=== PATIENT | male | born 1940 | race Caucasian/White ===

== ENCOUNTER → 2024-07-27 06:27 | Day surgery (SDC) | payer MEDICARE, SELFPAY ==
[2024-07-27 07:56] LABS: Glucose - Point of Care 114 mg/dl (70-99)
== END ==
LOC: GI 06:27
PROVIDERS: ATTENDING PHYSICIAN Internal Medicine Gastroenterology
DX: K31.89 Other diseases of stomach and duodenum (principal); K25.9 Gastric ulcer, unspecified as acute or chronic, without hemorrhage or perforation; R13.10 Dysphagia, unspecified; K22.89 Other specified disease of esophagus; K29.80 Duodenitis without bleeding
CPT/HCPCS: 43239; 88305; 82962; 87220; 88342

== ENCOUNTER → 2024-09-14 11:56 | Outpatient (REF) | payer MEDICARE, SELFPAY | LOC: HWRAD 11:56 | PROVIDERS: ATTENDING PHYSICIAN Nurse Practitioner Primary Care; REFERRING PHYSICIAN Specialist | DX: M25.511 Pain in right shoulder (principal); M25.811 Other specified joint disorders, right shoulder | CPT/HCPCS: 73030 ==

== ENCOUNTER → 2024-10-03 13:45 | Outpatient (REF) | payer MEDICARE, SELFPAY | LOC: HWRAD 13:45 | PROVIDERS: ATTENDING PHYSICIAN Specialist; FAMILY PHYSICIAN Nurse Practitioner Primary Care | DX: M19.011 Primary osteoarthritis, right shoulder (principal) | CPT/HCPCS: 73200 ==

== ENCOUNTER → 2024-10-09 13:17 | Outpatient (REF) | payer MEDICARE, SELFPAY | LOC: HWCARD 13:17 | PROVIDERS: ATTENDING PHYSICIAN Specialist; FAMILY PHYSICIAN Nurse Practitioner Primary Care | DX: Z01.818 Encounter for other preprocedural examination (principal) | CPT/HCPCS: 93005 ==

== ENCOUNTER 2024-10-26 06:18 | Day surgery (SDC) | payer MEDICARE, SELFPAY ==
[2024-10-26 09:07] LABS: Glucose - Point of Care 95 mg/dl (70-99)
== END 2024-10-26 10:52 | disposition home or self-care (01) ==
LOC: GI 06:18
PROVIDERS: ATTENDING PHYSICIAN Internal Medicine Gastroenterology
DX: K27.9 Peptic ulcer, site unspecified, unspecified as acute or chronic, without hemorrhage or perforation (principal)
CPT/HCPCS: 43235; 82962

== ENCOUNTER 2024-11-30 06:30 | Day surgery (SDC) | payer MEDICARE, SELFPAY ==
[2024-11-30 08:01] LABS: Glucose - Point of Care 90 mg/dl (70-99)
== END 2024-11-30 09:27 | disposition home or self-care (01) ==
LOC: GI 06:30
PROVIDERS: ATTENDING PHYSICIAN Internal Medicine Gastroenterology
DX: R12 Heartburn (principal); K31.89 Other diseases of stomach and duodenum; K27.9 Peptic ulcer, site unspecified, unspecified as acute or chronic, without hemorrhage or perforation
CPT/HCPCS: 43239; 88305; 82962; 88342

== ENCOUNTER 2025-04-28 17:53 | Inpatient (IN) | payer MEDICARE, SELFPAY ==
[2025-04-28] VITALS (12 sets, daily range): BP systolic 101–127; BP diastolic 60–78; PULSE 89; BMI 28.7
--- NOTE | 2025-04-28 12:39 | EDRN ---
Pt in BR attempting urine spec.
--- NOTE | 2025-04-28 12:41 | EDRN ---
Ailyn LEDESMA in room w/ pt.
--- NOTE | 2025-04-28 12:48 | ED.GENMED ---
History of Present Illness
General
Chief Complaint: Male Genito-Urinary Symptoms
Source: patient and spouse
Exam Limitations: none
Time Seen by Provider: 04/28/25 12:34
History of Present Illness
History of Present Illness:
84yoM with a history of hypertension, hyperlipidemia, type 2 diabetes, CKD, WINDY on CPAP, and BPH presenting with his for evaluation of dysuria. Symptoms began 2 days ago with burning with urination, foul smelling urine, and urinary frequency.
He was having difficulty sleeping because he had to get up so much to urinate. He is only urinating in small amounts at a time. He called his urologist yesterday regarding his symptoms and he was advised to start taking AZO and get an outpatient
urinalysis done. states he has been very fatigued over the last 24 hours and has been sleeping a lot. She noticed that the urine appeared to be discolored today. called his urologist back and they were advised to go to the ED for
evaluation. He had an episode of vomiting in the waiting room. Patient has a Dexcom and his blood sugars have been well controlled. Glucose is 128 during initial exam. He denies any fevers, chills, abdominal pain, testicular pain, flank pain.
Phy Exam
General Physical Exam
General Presentation: well appearing and no apparent distress
General Skin: warm and dry
General Habitus: normal
General Mental: alert
ENT Exam
ENT Exam: normocephalic
Cardiovascular Exam
Cardiovascular Exam: regular rate/rhythm
Pulmonary Exam
Pulmonary Exam: lungs clear, no respiratory distress, no rales, no crackles, no rhonchi and no wheezing
Gastrointestinal Exam
Gastrointestinal Exam: non tender, soft, non distended and no cva tenderness
Neurological Exam
Neurological Exam: alert
[place] Coma Scale
Eye Opening: Spontaneous
Verbal Response: Oriented
Motor Response: Obeys Commands
GCS Total Score: 15
Skin Exam
Skin Exam: normal color and warm/dry
Psychiatric Exam
Psychiatric Exam: normal mood/affect
Course
Orders/Labs/Results
Orders:
Orders
04/28/25 12:44
Urinalysis Reflex To Culture Urgent
Date Specimen was Collected: 04/28/25
Time Specimen was Collected: 12:42
Urine Microscopic Reflex Cult Urgent
Urine Culture Urgent
JARRETT Source: U
Specimen Description:
Date Specimen was Collected: 04/28/25
Time Specimen was Collected: 12:42
04/28/25 12:48
Bladder Scan- Treatment ONCE
04/28/25 13:06
Complete Blood Count/With Diff Urgent
Comprehensive Metabolic Panel Urgent
04/28/25 14:31
CT Abd/pel Without Iv Or Oral Urgent
Comment:
Reason For Exam: urinary symptoms, SIRIA
0.9% Sodium Chloride 500 ml [Nss] 500 ml IV BOLUS
CefTRIAXone [Rocephin] 2,000 mg IV NOW STA
04/28/25 16:06
Lactic Acid Urgent
Blood Culture Q30M
JARRETT Source: Blood/Venous
Specimen Description:
04/28/25 16:24
Blood Culture Q30M
JARRETT Source: Blood/Venous
Specimen Description:
04/28/25 17:02
Admit/Transfer Patient As Directed
Co-Sign Provider:
Level of Care: Inpatient admission
Assign to:: Telemetry
Physician / Group: Gemma
Diagnosis: Sepsis, UTI
Reason for Telemetry: Arrhythmia
Date to Stop Telemetry: 05/01/25
Time to Stop Telemetry: 11:00
Reason for Hospitalization: IVF, UTI
Expected length of stay greater than two midnights?: Yes
ELOS- Estimated Length of Stay in days: 3
I certify the patient meets the requirements for IP care: Yes
PRN Pain Medication Management As Directed
May give lesser potent ordered pain med per pt: Yes
preference::
Protocol:: Medication orders for pain may be administered in a
manner that supports deferring to patient preference
when the pt is:
- Requesting an ordered lesser potent pain medication.
Least to most potent pain medications are defined
as: acetaminophen < NSAID < tramadol < opioids
(morphine, oxycodone, hydromorphone).
- Requesting a lesser dose of the same medication IF
ORDERED.
- Requesting a less intrusive route of administration
if both routes are prescribed by the provider (PO <
IV).
04/28/25 17:04
Code Status As Directed
Resuscitation Status: Full Code
05/01/25 11:00
DC Protocol for Telemetry ONCE
Abnormal Lab Results
04/28/25 04/28/25 04/28/25
12:44 13:06 16:06
WBC 15.8 H 10^3/uL
(4.8-10.8)
RDW 14.9 H %
(11.5-14.5)
Plt Count 129 L 10^3/uL
(130-400)
Abs Immat Gran (auto) 0.1 H 10^3/uL
(0-0.05)
Absolute Neuts (auto) 14.1 H 10^3/uL
(1.4-6.5)
Absolute Lymphs (auto) 0.5 L 10^3/uL
(1.2-3.4)
Absolute Monos (auto) 1.1 H 10^3/uL
(0.1-0.6)
Neutrophils % 89.2 H %
(42.2-75.2)
Lymphocytes % 3.0 L %
(20.5-51.1)
Sodium 134 L mmol/L
(135-145)
BUN 37 H mg/dl
(9-20)
Creatinine 1.7 H mg/dL
(0.7-1.3)
Glucose 137 H mg/dl
(70-99)
Lactic Acid 2.2 H mmol/L
(0.7-2.0)
Total Bilirubin 1.9 H mg/dl
(0.2-1.3)
Total Protein 6.1 L g/dl
(6.3-8.2)
Ur Occult Blood Reflex 4+ A
(Negative)
Urine Nitrite (Reflex) Positive A
(Negative)
Urine Bilirubin 3+ A
(Negative)
Urine Urobilinogen 2+ A
(Neg - 1+)
Leukocyte Esterase Rfl 3+ A
(Negative)
Urine RBC >100 A /HPF
(0-2)
Urine WBC (Reflex) 50-60 A /HPF
(0-5)
Urine Bacteria (Reflex) Many A
(Negative)
Urine Albumin (Reflex) 4+ A
(Neg - Trace)
04/28/25 13:06
04/28/25 13:06
Vital Signs
Initial and Last Documented VS:
Initial Vital Signs
Temp Pulse Resp BP Pulse Ox
99.1 F 66 16 127/75 95
04/28/25 11:50 04/28/25 11:50 04/28/25 11:50 04/28/25 11:50 04/28/25 11:50
Last Documented Vital Signs
Temp Pulse Resp BP Pulse Ox
99.1 F 93 16 101/67 93
04/28/25 11:50 04/28/25 18:51 04/28/25 17:00 04/28/25 18:51 04/28/25 18:51
MDM/Problems Addressed
Differential Diagnosis Includes:
84yoM here with UTI symptoms and fatigue x 2 days. VSS. He is non-toxic appearing. No abdominal or CVA tenderness on exam. Differential diagnosis includes but is not limited to: UTI, pyelonephritis, urinary retention
Initial ED plan: Check CBC, CMP, UA, and bladder scan.
*Pulse Oximetry
SaO2: 95
Oxygen Mode of Delivery: Room air
Patient hypoxic: no (95%)
*Critical Care Note
Total Time (30-74mins, 75-104mins- exclusive of procedures): Not Applicable
Update Note
Update Note:
UA is nitrite positive with 50-60 WBC and many bacteria. White count is 15.8. Creatinine 1.7. was able to show me his recent lab work from [facility]. Last creatinine in February [address] abdomen added which does not show any ureterolithiasis
or hydronephrosis. Blood cultures and IV Rocephin ordered. Patient admitted for further management.
ED Attending Note
-
Portions of this chart may have been created with voice recognition software.� Occasional wrong word or��sound alike� substitutions may have occurred due to the inherent limitations of voice recognition software.
Discharge Plan
Departure
Patient Disposition: Admit
Date of Disposition: 04/28/25
Time of Disposition: 16:25
Presentation/result/management discussed w/ accepting MD/DO: Hospitalist
Discharge Problem:
Urinary tract infection, Acute kidney injury
Interventions
Interventions:
*Risk Screen - Suicide Last Done: 04/28/25 11:55
*General Assessment Last Done: 04/28/25 12:38
*Neglect/Abuse Screening Last Done: 04/28/25 11:55
*ED- Fall Risk Assessment Last Done: 04/28/25 12:38
*ED COVID-19 Vaccine History Last Done: 04/28/25 12:38
ED-Male Genitourinary Assessment Last Done: 04/28/25 12:42
[2025-04-28 12:53] LABS: Urine Character Cloudy (Clear)
[2025-04-28 13:05] LABS: Urine Red Blood Cell >100 /HPF (0-2); Urine White Cell 50-60 /HPF (0-5)
[2025-04-28 13:14] LABS: Hematocrit 41.6 % (39.0-52.0); Hemoglobin 13.8 g/dL (13.0-18.0); Mean Corp Hgb Conc. 33.2 g/dL (33.0-37.0); Mean Corpuscular Volume 88.5 fL (80.0-94.0); Nucleated Red Blood Cells % 0 % (-); Platelet Count 129 10^3/uL (130-400); Red Cell Dist. Width 14.9 % (11.5-14.5)
[2025-04-28 13:38] LABS: ALT (SGPT) 21 U/L (0-50); AST (SGOT) 48 U/L (17-59); Albumin 3.6 g/dl (3.5-5.0); Alkaline Phosphatase 97 U/L (38-126); Blood Urea Nitrogen 37 mg/dl (9-20); Calcium 8.7 mg/dl (8.4-10.2); Carbon Dioxide 23 mmol/L (22-30); Chloride 102 mmol/L (98-107); Estimated Creatinine Clearance 41 ml/min; Glucose 137 mg/dl (70-99); Potassium 4.2 mmol/L (3.5-5.1); Sodium 134 mmol/L (135-145); Total Protein 6.1 g/dl (6.3-8.2); eGFR 39.75
[2025-04-28] MEDS: ROCEPHIN 2000 MG IV (16:32)
[2025-04-28] MEDS: NSS 500 IV (16:32)
--- NOTE | 2025-04-28 16:36 | HPS.HSE ---
Family Physician
-
Family Physician: Cristy Moe
Chief Complaint
-
Dysuria
History of Present Illness
Patient is a 84 y/o male past medical history of DM, HTN, CKD, peripheral neuropathy and BPH who presents with dysuria and foul-smelling urine. Patient reports onset of symptoms 2 day ago. He notes yesterday he was very tired and spent most of the
day sleeping. He reports chills yesterday as well. He denies prior history of urinary tract infection, but notes he was started on Farxiga about 6-8 months ago.
Medical History
Past Medical History
Past Medical History: Reports Other
Additional Past Medical History:
Diabetes Mellitus, Type II
Essential Hypertension
Hyperlipidemia
CKD IIIA
Peripheral Neuropathy
BPH
GERD
Gout
WINDY
Past Surgical History: Reports Other
Additional Past Surgical History:
Right Shoulder Replacement
Social History
Tobacco: Non-smoker
Alcohol: Other (Very rare)
Personal:
Family History
Family History: Not pertinent
Allergies / Home Medications
Allergies reflects when Allergies were last updated in [facility] [employer] [facility].
Home Medications with original date entered in [employer]
Allergy/Medication List:
Allergies
Allergy/AdvReac Type Severity Reaction Status Date / Time
No Known Allergies Allergy Unverified 04/28/25 11:55
Home Medications
alfuzosin 10 mg tablet,extended release 24 hr 10 mg PO QPM 04/28/25
allopurinol 300 mg tablet 300 mg PO DAILY 04/28/25
atorvastatin 20 mg tablet 20 mg PO DAILY 04/28/25
cyanocobalamin (vitamin B-12) 1,000 mcg tablet 1,000 mcg PO DAILY 04/28/25
dapagliflozin propanediol 10 mg tablet (Farxiga) 10 mg PO DAILY 04/28/25
dulaglutide 4.5 mg/0.5 mL subcutaneous pen injector (Trulicity) 4.5 mg SC TORRES 04/28/25
ezetimibe 10 mg tablet 10 mg PO DAILY 04/28/25
gabapentin 100 mg capsule 100 mg PO TIDPRN PRN nerve pain 04/28/25
losartan 100 mg-hydrochlorothiazide 12.5 mg tablet 1 tab PO DAILY 04/28/25
mirabegron 25 mg tablet,extended release 24 hr (Myrbetriq) 25 mg PO DAILY 04/28/25
mupirocin 2 % topical ointment 1 applic topical DAILY 04/28/25
pantoprazole 40 mg tablet,delayed release 40 mg PO DAILY 04/28/25
phenazopyridine 95 mg tablet 190 mg PO TID 04/28/25
therapeutic multivitamin 1 tab PO DAILY 04/28/25
tramadol 50 mg tablet 50 mg PO Q8HPRN PRN nerve pain 04/28/25
zinc acetate 50 mg (zinc) capsule 50 mg PO DAILY 04/28/25
Review of Systems
-
History Source: Patient
A 12 point ROS was completed and negative except as noted: Yes
Constitutional: Reports Chills; Denies Fever
Respiratory: Denies Cough or Trouble Breathing
Cardiac: Denies Chest Pain or Palpitations
Abdomen/GI: Denies Abdominal Pain, Nausea, Vomiting, Diarrhea or Constipated
: Reports See HPI and Dysuria
Physical Exam
Vital Signs
Vital Signs
Temp Pulse Resp BP Pulse Ox
99.1 F 92 16 103/62 94
04/28/25 11:50 04/28/25 14:00 04/28/25 14:00 04/28/25 14:00 04/28/25 14:00
Physical Exam
General: Well Developed, Well Nourished and No Apparent Distress
HEENT: NormoCephalic, Anicteric, Moist mucous membranes and Atraumatic
Respiratory: Clear and Non Labored Respirations; No Wheezes, Rales or Rhonchi
Cardiac: S1/S2 and Regular Rhythm; No Murmur
GI: Soft, Non Tender and Other (Protuberant)
Rectal: Deferred by Provider
Musculoskeletal: No Clubbing, No Cyanosis and No Edema
Skin: Warm and Dry; No Rash
Neuro: Awake, Alert, Oriented and Nonfocal/grossly intact
Psych: Calm
Laboratory Results
-
04/28/25 13:06
04/28/25 13:06
Laboratory Results
Lactic Acid 2.2 mmol/L (0.7-2.0) H 04/28/25 16:06
Total Bilirubin 1.9 mg/dl (0.2-1.3) H 04/28/25 13:06
AST 48 U/L (17-59) 04/28/25 13:06
ALT 21 U/L (0-50) 04/28/25 13:06
Alkaline Phosphatase 97 U/L (38-126) 04/28/25 13:06
Data Reviewed
-
Lab Data: Labs Reviewed by me
Impression/Plan
-
Sepsis secondary to Urinary Tract Infection
-Continue Ceftriaxone
-Await urine and blood culture
-Plan to stop dapagliflozin as may have contributed to development of urinary tract infection
SIRIA on CKD IIIA
-Continue IVFs
-Hold losartan/HCTZ and dapagliflozin
-Recheck labs in AM
Diabetes Mellitus, Type II
-Patient reports no longer on insulin
-Hold dapagliflozin
-Monitor sugars and continue coverage insulin
Essential Hypertension
-Hold losartan and HCTZ due ot SIRIA
Hyperlipidemia
-continue atorvastatin and ezetimibe
BPH
-Monitor bladder scan
-Continue alfuzosin
GERD
-Continue Protonix
WINDY
-Continue CPAP
DVT proph: SCDs
Code Status: Full Code
--- NOTE | 2025-04-28 17:25 | W.PN.UPDATE ---
Update Note
Progress Note Update
This is an addendum to H&P written by Noemy Stone on 04/28/2025. �Patient seen and examined independently with PA.
84-year-old male past medical history of CKD, diabetes, hypertension, hyperlipidemia, neuropathy, BPH, GERD, gout, obstructive sleep apnea, presenting with dysuria for 2 days with fatigue and foul-smelling urine. �Chills.
Vital signs normal apart from borderline tachycardia.
Labs show leukocytosis. �Urinalysis shows 50-60 WBC, +2 leukocyte esterase, positive nitrates.
Lactic acid 2.2. �Creatinine 1.7. �CT abdomen pelvis shows severe BPH, urinary bladder wall thickening, renal cyst, moderate splenomegaly, mild hepatomegaly, chronic pancreatitis, diverticulosis, moderate fecal material in the proximal colon.
Patient with sepsis secondary to urinary tract infection.
Check blood cultures. �Urine culture. �IV fluids for SIRIA. �Ceftriaxone. �Hold losartan/hydrochlorothiazide and dapagliflozin.
Unclear etiology of splenomegaly. �Outpatient follow-up. �Not clinically constipated.
--- NOTE | 2025-04-28 17:50 | CM ---
CM reviewed chart and met with pt and bedside in ED. Lives with , 2 story home, [address]. first floor half BA, full flight of steps to second floor BR/full BA.
Independent in ADLs, personal care and ambulation. Has RW, per pt, Dr Starkey wants him to get a knee scooter as he has unhealed ulcers on his foot, he is looking in to this.
Also has CPAP, Dexcom, raised toilet seat and shower bench
They are considering selling their home and moving to [facility] but do not have any definite plans yet.
Confirms prescription coverage.
Hx [facility] and [facility] at [facility] for rehab
PCP: Cristy Moe
Pharmacy: [facility]
Anticipate discharge home, CM will continue to follow for any discharge planning needs.
[2025-04-28] MEDS: NSS 1000 IV (21:15)
[2025-04-28 21:31] LABS: Glucose - Point of Care 103 mg/dl (70-99)
[2025-04-28] MEDS: ULTRAM 50 MG PO (21:54)
[2025-04-29] MEDS: MELATONIN 5 MG PO ×2 (00:02→19:50)
[2025-04-29 05:56] LABS: Hematocrit 37.9 % (39.0-52.0); Hemoglobin 12.9 g/dL (13.0-18.0); Mean Corp Hgb Conc. 34.0 g/dL (33.0-37.0); Mean Corpuscular Volume 88.8 fL (80.0-94.0); Platelet Count 139 10^3/uL (130-400); Red Cell Dist. Width 14.8 % (11.5-14.5)
[2025-04-29 06:22] LABS: Blood Urea Nitrogen 38 mg/dl (9-20); Calcium 8.5 mg/dl (8.4-10.2); Carbon Dioxide 25 mmol/L (22-30); Chloride 104 mmol/L (98-107); Estimated Creatinine Clearance 47 ml/min; Glucose 93 mg/dl (70-99); Potassium 4.0 mmol/L (3.5-5.1); Sodium 135 mmol/L (135-145); eGFR 46.19
[2025-04-29] MEDS: NSS 1000 IV ×2 (06:45→17:14)
[2025-04-29 07:30] VITALS: BP 125/72
[2025-04-29 07:55] LABS: Glucose - Point of Care 95 mg/dl (70-99)
[2025-04-29] MEDS: NOVOLOG FLEXPEN-MODERATE RESISTANCE SC ×2 (08:35→16:54)
--- NOTE | 2025-04-29 08:35 | W.PN.HOSP.TC ---
Today's Communication/Plan
-
Continue IV antibiotics
Continue monitoring sugar levels
Monitoring BMP
Monitor urine output
Assessment / Plan
Assessment / Plan
Assessment:
84-year-old male with a past medical history of type 2 diabetes, hypertension, CKD, peripheral neuropathy and BPH presented due to dysuria and foul-smelling urine. The symptoms started past and he had noted that he was feeling a bit
fatigued and spent most of the day sleeping. He had some sort of chills as well. He was also started on Farxiga around 6 to 8 months ago. In the ED, he was found to have sepsis secondary to most likely UTI and was started on ceftriaxone while
awaiting urine and blood cultures. He also had SIRIA on CKD 3 AA for which she was started on IV fluids. Patient symptoms continue to improve, and he no longer had dysuria.
Plan:
#Sepsis secondary to UTI
- CT abdomen pelvis showed: Very severe enlargement of the prostate gland. Mild diffuse urinary bladder wall thickening and trabeculation consistent with chronic urinary bladder outlet obstruction and superimposed acute cystitis. Moderate chronic
bilateral renal disease. Large number of bilateral renal cysts (simple cysts, high attenuation hemorrhagic cysts, and intermediate attenuation renal masses which are probably complex cysts and less likely renal cell carcinoma). Severe diverticulosis
in the descending and sigmoid colon.
- Urinalysis positive for UTI, showed 2+ leukocyte esterase and increased white blood cell count
- Patient was started on ceftriaxone in the ED, continue until cultures
- Urine and blood cultures were taken in the ED
- Lactate was increased, at 2.2
- Leukocytosis which is resolving, levels went down from 15.8-13.7
- Dapagliflozin was stopped as it might have contributed to the UTI
- Continue IV fluids
# SIRIA on CKD IIIA
- Patient was started on IV fluids, continue
- Patient's creatinine improved from 1.7-1.5
- Continue trending BMP
# Diabetes mellitus type 2
- Holding Farxiga, monitor sugar and continue insulin sliding scale
# Essential hypertension
- Holding losartan/HCTZ, continue monitoring blood pressures
# Hyperlipidemia
- Continue atorvastatin and Ezetimibe
# BPH
- Monitor bladder scan and continue alfuzosin
# GERD
- Continue Protonix
# WINDY
- Continue CPAP at night
DVT Prophylaxis: Lovenox
Full Code
Anticipated Discharge: Within 24 hours
Subjective/Interval History
-
Date of Service: April 29, 2025
Patient seen this morning, reports that he is feeling much better, reports no further burning urination. Says he is has no fevers or chills, and reports that the color of his urine has been normal now too.
Objective Data
-
Labs:
Laboratory Results
04/29/25
04:07
WBC 13.7 H
Hgb 12.9 L
Hct 37.9 L
Plt Count 139
Sodium 135
Potassium 4.0
Chloride 104
Carbon Dioxide 25
BUN 38 H
Creatinine 1.5 H
Glucose 93
Calcium 8.5
Vital Signs:
Vital Signs
Temp Pulse Resp BP Pulse Ox
98.4 F 89 20 125/72 95
04/28/25 23:00 04/29/25 07:30 04/29/25 07:30 04/29/25 07:30 04/29/25 07:30
I&O
04/28/25 04/29/25 04/30/25
06:59 06:59 06:59
Intake Total 450 / 450
Balance 450 / 450
Review of Systems
-
History Source: Patient
Constitutional: Reports No Symptoms
EENT: Reports No Symptoms Reported
Respiratory: Reports No Symptoms
Cardiac: Reports No Symptoms
Abdomen/GI: Reports No Symptoms
Genitourinary: Reports No Symptoms
Musculoskeletal: Reports No Symptoms
Skin: Reports No Symptoms
Neuro: Reports No Symptoms
Physical Exam
-
General: Well Developed, Well Nourished, No Apparent Distress, Comfortable and Conversant
HEENT: Normocephalic and Atraumatic
Respiratory: Clear to Auscultation and Non Labored Respirations
Cardiac: Regular Rhythm and S1/S2
GI: Soft, Nontender and Nondistended
Musculoskeletal: No Clubbing, No Cyanosis and No Edema
Neuro: Awake, Alert, Oriented and AO x 3
Psych: Calm
Data Reviewed
-
CT Scan: Report Reviewed by me, Discussed with Physician, Discussed with Nurse and Discussed with Patient
Labs: Labs Reviewed by me, Discussed with Physician, Discussed with Nurse and Discussed with Patient
[2025-04-29] MEDS: PROTONIX 40 MG PO (08:36)
[2025-04-29] MEDS: FLOMAX 0.4 MG PO (08:36)
[2025-04-29] MEDS: ZETIA 10 MG PO (08:36)
[2025-04-29] MEDS: LIPITOR 20 MG PO (08:36)
[2025-04-29 10:32] LABS: Glycohemoglobin (HgbA1c) 5.9 % (4.0-5.6)
[2025-04-29 11:40] VITALS: BP 121/71
[2025-04-29 12:00] LABS: Glucose - Point of Care 157 mg/dl (70-99)
[2025-04-29] MEDS: NOVOLOG FLEXPEN-MODERATE RESISTANCE 1 UNITS SC (12:01)
[2025-04-29 15:36] VITALS: BP 122/70
[2025-04-29] MEDS: STERILE WATER FOR INJECTION 10 ML IV (15:44)
[2025-04-29] MEDS: ROCEPHIN 1000 MG IV (15:44)
[2025-04-29 16:51] LABS: Glucose - Point of Care 98 mg/dl (70-99)
[2025-04-29] MEDS: LOVENOX 40 MG SC (17:14)
[2025-04-29] MEDS: ULTRAM 50 MG PO (19:49)
[2025-04-29 19:52] VITALS: BP 124/72
[2025-04-29 21:46] LABS: Glucose - Point of Care 119 mg/dl (70-99)
[2025-04-29] MEDS: NEURONTIN 100 MG PO (21:58)
[2025-04-29 23:17] VITALS: BP 127/75
[2025-04-30 03:40] VITALS: BP 123/66
[2025-04-30] MEDS: NSS 1000 IV (03:57)
[2025-04-30 07:11] VITALS: BP 122/70
[2025-04-30 07:42] LABS: Glucose - Point of Care 91 mg/dl (70-99)
[2025-04-30] MEDS: LIPITOR 20 MG PO (08:14)
[2025-04-30] MEDS: PROTONIX 40 MG PO (08:14)
[2025-04-30] MEDS: FLOMAX 0.4 MG PO (08:14)
[2025-04-30] MEDS: ZETIA 10 MG PO (08:14)
[2025-04-30] MEDS: NOVOLOG FLEXPEN-MODERATE RESISTANCE SC ×2 (08:14→11:25)
[2025-04-30 08:16] LABS: Hematocrit 37.4 % (39.0-52.0); Hemoglobin 12.4 g/dL (13.0-18.0); Mean Corp Hgb Conc. 33.2 g/dL (33.0-37.0); Mean Corpuscular Volume 88.8 fL (80.0-94.0); Nucleated Red Blood Cells % 0 % (-); Platelet Count 153 10^3/uL (130-400); Red Cell Dist. Width 14.8 % (11.5-14.5)
--- NOTE | 2025-04-30 08:35 | W.PN.HOSP.TC ---
Addendum entered and electronically signed by Jason Myles MD 05/02/25 17:52:
dc
agree with resident below
Original Note:
Today's Communication/Plan
-
Continue current antibiotics, pending cultures
Continue monitoring for any worsening symptoms such as dysuria
Assessment / Plan
Assessment / Plan
Assessment:
84-year-old male with a past medical history of type 2 diabetes, hypertension, CKD, peripheral neuropathy and BPH presented due to dysuria and foul-smelling urine. The symptoms started past and he had noted that he was feeling a bit
fatigued and spent most of the day sleeping. He had some sort of chills as well. He was also started on Farxiga around 6 to 8 months ago. In the ED, he was found to have sepsis secondary to most likely UTI and was started on ceftriaxone while
awaiting urine and blood cultures. He also had SIRIA on CKD 3A for which she was started on IV fluids. Patient symptoms continue to improve, and he no longer has dysuria. Overall looking much better, ready to go home.
Plan:
#Sepsis only secondary to UTI
- CT abdomen pelvis showed: Very severe enlargement of the prostate gland. Mild diffuse urinary bladder wall thickening and trabeculation consistent with chronic urinary bladder outlet obstruction and superimposed acute cystitis. Moderate chronic
bilateral renal disease. Large number of bilateral renal cysts (simple cysts, high attenuation hemorrhagic cysts, and intermediate attenuation renal masses which are probably complex cysts and less likely renal cell carcinoma). Severe diverticulosis
in the descending and sigmoid colon.
- Urinalysis positive for UTI, showed 2+ leukocyte esterase and increased white blood cell count
- Patient was started on ceftriaxone in the ED
- Urine culture grew E. coli, pending sensitivities
- Continuing ceftriaxone until sensitivities come back
- Urine and blood cultures were taken in the ED
- Lactate was increased, at 2.2
- Leukocytosis has resolved, white count down to 9.4
- Dapagliflozin was stopped as it might have contributed to the UTI
# SIRIA on CKD IIIA
- Patient was started on IV fluids
- Kidney function continued to improve
- Finished his IVF last night
- Continue trending BMP
# Diabetes mellitus type 2
- Holding Farxiga, monitor sugar and continue insulin sliding scale
# Essential hypertension
- Holding losartan/HCTZ, continue monitoring blood pressures
# Hyperlipidemia
- Continue atorvastatin and Ezetimibe
# BPH
- Monitor bladder scan and continue alfuzosin
# GERD
- Continue Protonix
# WINDY
- Continue CPAP at night
DVT Prophylaxis: Lovenox
Full Code
Anticipated Discharge: Today
Subjective/Interval History
-
Date of Service: April 30, 2025
Patient seen this morning, resting comfortably in bed. Reports no complaints overnight. Looking forward to going home today.
Objective Data
-
Labs:
Laboratory Results
04/30/25
07:37
WBC 9.4
Hgb 12.4 L
Hct 37.4 L
Plt Count 153
Sodium Pending
Potassium Pending
Chloride Pending
Carbon Dioxide Pending
BUN Pending
Creatinine Pending
Glucose Pending
Calcium Pending
Total Bilirubin Pending
AST Pending
ALT Pending
Alkaline Phosphatase Pending
Vital Signs:
Vital Signs
Temp Pulse Resp BP Pulse Ox
98.4 F 87 18 122/70 96
04/30/25 07:11 04/30/25 07:11 04/30/25 07:11 04/30/25 07:11 04/30/25 07:11
I&O
04/29/25 04/30/25 05/01/25
06:59 06:59 06:59
Intake Total 450 / 450 1720 / 1720
Output Total 1950 / 1950
Balance 450 / 450 -230 / -230
Review of Systems
-
History Source: Patient
Constitutional: Reports No Symptoms
EENT: Reports No Symptoms Reported
Respiratory: Reports No Symptoms
Cardiac: Reports No Symptoms
Abdomen/GI: Reports No Symptoms
Genitourinary: Reports No Symptoms
Musculoskeletal: Reports No Symptoms
Skin: Reports No Symptoms
Neuro: Reports No Symptoms
Physical Exam
-
General: Well Developed, Well Nourished, No Apparent Distress, Comfortable and Conversant
HEENT: Normocephalic and Atraumatic
Respiratory: Clear to Auscultation and Non Labored Respirations
Cardiac: Regular Rhythm and S1/S2
GI: Soft, Nontender and Nondistended
Genito-urinary: No Costovertebral Tender
Musculoskeletal: No Clubbing, No Cyanosis and No Edema
Skin: Warm and Dry
Neuro: Awake, Alert, Oriented and AO x 3
Psych: Calm
Data Reviewed
-
Labs: Labs Reviewed by me, Discussed with Physician and Discussed with Patient
[2025-04-30 08:42] LABS: ALT (SGPT) 25 U/L (0-50); AST (SGOT) 37 U/L (17-59); Albumin 2.8 g/dl (3.5-5.0); Alkaline Phosphatase 109 U/L (38-126); Blood Urea Nitrogen 29 mg/dl (9-20); Calcium 8.3 mg/dl (8.4-10.2); Carbon Dioxide 24 mmol/L (22-30); Chloride 107 mmol/L (98-107); Estimated Creatinine Clearance 58 ml/min; Glucose 101 mg/dl (70-99); Potassium 3.6 mmol/L (3.5-5.1); Sodium 136 mmol/L (135-145); Total Protein 5.1 g/dl (6.3-8.2); eGFR > 60.00
--- NOTE | 2025-04-30 09:00 | PTCARENOTE ---
Patient complaining of constipation--last BM 04/27. This RN notified doctor. PRN Miralax ordered.
[2025-04-30 11:07] VITALS: BP 121/71
[2025-04-30 11:24] LABS: Glucose - Point of Care 123 mg/dl (70-99)
--- NOTE | 2025-04-30 12:49 | W.DCSUMMARY ---
Discharge Summary
Discharge Data
Date of Admission: 04/28/25
Date of Discharge: 04/30/25
-
Pending Results: No
Hospital Course
Discharging Physician : Dr. Jason yMles, Dr. Fantasma Galloway
Disposition : Home
Primary care physician : Cristy Moe NP
Principal Discharge diagnosis :
Sepsis secondary to UTI
SIRIA on CKD IIIA
Chronic Discharge diagnosis :
Diabetes mellitus type 2
Essential hypertension
Hyperlipidemia
BPH
GERD
Hospital Course :
84-year-old male with a past medical history of type 2 diabetes, hypertension, CKD3A, peripheral neuropathy and BPH presented due to dysuria and foul-smelling urine. The symptoms started past and he had noted that he was feeling a bit
fatigued and spent most of the day sleeping. He had some sort of chills as well. He was also started on Farxiga around 6 to 8 months ago. In the ED, he was found to have sepsis secondary to most likely UTI along with acute kidney injury and was
started on ceftriaxone and IV fluids while awaiting urine and blood cultures. Patient's CT Abd/Pel showed very enlarged prostate gland, mild diffuse urinary bladder wall thickening and trabeculation, along with moderate splenomegaly and celiac
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 Patient symptoms continued to improve, and he no longer had dysuria. Patient received a third dose of Ceftriaxone before being discharged home with oral Cefpodoxime twice a day which he should take for 4 more days. Patient
was given information about Urology (Dr. Taveras) to follow up with him regarding his very enlarged prostate gland. Patient also given a script to check his BMP within the week and to subsequently follow up with his PCP. He needs to discuss CT
findings with his PCP including moderate Splenomegaly and fusiform celiac artery aneurysm.
Important imaging findings :
CT Abd/pel Without Iv Or Oral:
1. Very severe enlargement of the prostate gland.
2. Mild diffuse urinary bladder wall thickening and trabeculation consistent with chronic urinary bladder outlet obstruction and superimposed acute cystitis.
3. Moderate chronic bilateral renal disease.
4. Large number of bilateral renal cysts (simple cysts, high attenuation hemorrhagic cysts, and intermediate attenuation renal masses which are probably complex cysts and less likely renal cell carcinoma).
5. Moderate diffuse hepatic steatosis.
6. Mild hepatomegaly.
7. Moderate splenomegaly.
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
9. Chronic pancreatitis.
10. Severe diverticulosis in the descending and sigmoid colon.
11. Moderate fecal material in the proximal colon.
12. 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
13. Severe discogenic degenerative disease at L2/L3.
14. Grade 1 anterolisthesis of L4 on L5 secondary to severe facet joint arthrosis.
Procedure findings : N/A
Discharge Plan
-
Patient Disposition: Home (Routine Discharge)
Discharge Diagnosis/Procedures: Sepsis secondary to UTI
SIRIA on CKD IIIA
Diabetes mellitus type 2
Essential hypertension
Hyperlipidemia
BPH
GERD
Condition: Good
Diet: Low Cholesterol and Diabetic, Carb Controlled
Activity: No restrictions
Driving Restrictions: As prior to admission
Bathing Restrictions: None
Blood Work: BMP within 1 week
Referrals:
Cristy Moe CRNP [Family Provider, Internal Medicine] - in less than 1 week
Referral Note: Follow up with your PCP within 1 week
Erasmo Taveras MD [Active, Urology] - in one to two weeks
Referral Note: Please follow up with Urology regarding your BPH within 1-2 weeks.
Additional Discharge Medication Instructions: Continue Cepodoxime 200mg twice a day for 4 more days for your UTI. Start the medication tomorrow, you have already received your dose today.
Please follow up with your PCP in less than one week
Please follow up with BMP within 4-5 days
Please follow up with Urology within 1-2 weeks for your BPH. You were given information about Dr. Taveras
Prescriptions:
New
(DME) BMP in 4-5 days
See Rx Instructions .Route .MEDSUPPLY Qty: 1 0RF
Rx Instructions:
Dx. Acute Kidney Injury
Rx. BMP in 4-5 days
Please send results to patient's PCP: Cristy Moe NP
cefpodoxime 200 mg tablet
200 mg PO BID 4 Days Qty: 8 0RF
Continued
zinc acetate 50 mg (zinc) Capsule
50 mg PO DAILY
cyanocobalamin (vitamin B-12) 1,000 mcg Tablet
1,000 mcg PO DAILY
therapeutic multivitamin Tablet
1 tab PO DAILY
tramadol 50 mg tablet
50 mg PO Q8HPRN PRN (Reason: nerve pain)
pantoprazole 40 mg Tablet,Delayed Release (Dr/Ec)
40 mg PO DAILY
allopurinol 300 mg tablet
300 mg PO DAILY
mupirocin 2 % ointment
1 applic TOPICAL DAILY
Rx Instructions:
apply to wounds on both feet every morning at dressing change
gabapentin 100 mg capsule
100 mg PO TIDPRN PRN (Reason: nerve pain)
ezetimibe 10 mg tablet
10 mg PO DAILY
alfuzosin 10 mg tablet extended release 24 hr
10 mg PO QPM
losartan-hydrochlorothiazide 100-12.5 mg tablet
1 tab PO DAILY
mirabegron [Myrbetriq] 25 mg tablet extended release 24 hr
25 mg PO DAILY
Trulicity 4.5 mg/0.5 mL Pen Injector
4.5 mg SC TORRES
atorvastatin 20 mg tablet
20 mg PO DAILY
Discontinued
phenazopyridine [Azo] 95 mg Tablet
190 mg PO TID
dapagliflozin propanediol [Farxiga] 10 mg tablet
10 mg PO DAILY
Discharge Orders:
Discharge Patient (As Directed); Ordered 04/30/25
Ordered By: Fantasma Galloway
Discharge Date and Time
Print Language: SLOVENIAN
[2025-04-30] MEDS: ROCEPHIN 1000 MG IV (12:53)
[2025-04-30] MEDS: STERILE WATER FOR INJECTION 10 ML IV (12:53)
--- NOTE | 2025-04-30 13:01 | CM ---
perianesthesia manager met with patient and IMM completed, and placed on chart, mental health case manager spoke with patient regarding visiting nurses and his spouse by phone regarding visiting nurses and they have declined visiting nurses.
Plan; Home with spouse no needs.
--- NOTE | 2025-04-30 13:13 | PTCARENOTE ---
Last dose IV antibiotics administered. IV removed. Telemetry removed. Discharge instructions reviewed with patient and his . BMP script provided with paperwork. All questions answered and concerns addressed. Patient will be finishing his lunch
and then transported down for discharge to home.
--- NOTE | 2025-04-30 14:33 | PN.CDI ---
CDI
- -
CDI:
Physician Documentation Request
Admit Date: 04/28/25 17:53
Dear Doctor Nilesh,
Patient is admitted with sepsis secondary to UTI.
lactic acid on 04/28 2.2
Please clarify which of the following most accurately describes the status of the patient's infection:
Severe Sepsis
- Sepsis with associated acute organ dysfunction, such as renal or respiratory failur
Sepsis only
Other
Use of terms such as suspected, likely, concern for, or probable (associated with a specific diagnosis that is being evaluated, monitored, or treated as if it exists) are acceptable and can be coded in the inpatient setting, when documented at the
time of discharge.
Thank you,
Alissa Barnes RN, BSN
CDI Specialist
tiger text
Please use your independent medical judgment in providing your response.
== END 2025-04-30 13:39 | disposition home or self-care (01) | DRG 872 ==
LOC: 4 WEST ACU 17:53
PROVIDERS: Internal Medicine; Physician Assistant; Physician Assistant Medical; ADMITTING PHYSICIAN Hospitalist; ATTENDING PHYSICIAN Hospitalist; EMERGENCY PHYSICIAN Emergency Medicine; FAMILY PHYSICIAN Nurse Practitioner Primary Care
PROC: 5A09357 Assistance with Respiratory Ventilation, Less than 24 Consecutive Hours, Continuous Positive Airway Pressure (ICD-10-PCS; 2025-04-28)
DX: A41.51 Sepsis due to Escherichia coli [E. coli] (principal); N17.9 Acute kidney failure, unspecified; N30.00 Acute cystitis without hematuria; K86.1 Other chronic pancreatitis; G47.33 Obstructive sleep apnea (adult) (pediatric); N18.31 Chronic kidney disease, stage 3a; I12.9 Hypertensive chronic kidney disease with stage 1 through stage 4 chronic kidney disease, or unspecified chronic kidney disease; E11.22 Type 2 diabetes mellitus with diabetic chronic kidney disease; N40.0 Benign prostatic hyperplasia without lower urinary tract symptoms; E78.5 Hyperlipidemia, unspecified; E11.42 Type 2 diabetes mellitus with diabetic polyneuropathy; K21.9 Gastro-esophageal reflux disease without esophagitis; M10.9 Gout, unspecified; Z96.611 Presence of right artificial shoulder joint; N32.0 Bladder-neck obstruction; N28.1 Cyst of kidney, acquired; K57.30 Diverticulosis of large intestine without perforation or abscess without bleeding; R16.2 Hepatomegaly with splenomegaly, not elsewhere classified; M43.16 Spondylolisthesis, lumbar region; K76.0 Fatty (change of) liver, not elsewhere classified; Z79.84 Long term (current) use of oral hypoglycemic drugs
CPT/HCPCS: 74176; 80048; 80053; 81003; 81015; 82962; 83036; 83605; 85025; 85027; 87040; 87070; 87071; 87086; 87186; 94660; 96361; 96374; 99285

== ENCOUNTER 2025-06-15 06:20 | Day surgery (SDC) | payer MEDICARE, SELFPAY ==
[2025-06-15] VITALS (8 sets, daily range): BP systolic 118–134; BP diastolic 63–81; BMI 27.7
[2025-06-15 10:12] LABS: Glucose - Point of Care 95 mg/dl (70-99)
[2025-06-15] MEDS: CELEBREX 200 MG PO (10:13)
[2025-06-15] MEDS: TYLENOL 1000 MG PO (10:14)
[2025-06-15] MEDS: NORMOSOL-R/PLASMALYTE-A 1000 IV (10:35)
[2025-06-15 10:49] LABS: Hematocrit 37.8 % (39.0-52.0); Hemoglobin 12.8 g/dL (13.0-18.0); Mean Corp Hgb Conc. 33.9 g/dL (33.0-37.0); Mean Corpuscular Volume 89.4 fL (80.0-94.0); Platelet Count 194 10^3/uL (130-400); Red Cell Dist. Width 16.0 % (11.5-14.5)
[2025-06-15 10:58] LABS: ALT (SGPT) 16 U/L (0-50); AST (SGOT) 20 U/L (17-59); Albumin 3.9 g/dl (3.5-5.0); Alkaline Phosphatase 113 U/L (38-126); Blood Urea Nitrogen 17 mg/dl (9-20); Calcium 8.9 mg/dl (8.4-10.2); Carbon Dioxide 26 mmol/L (22-30); Chloride 108 mmol/L (98-107); Estimated Creatinine Clearance 58 ml/min; Glucose 91 mg/dl (70-99); Potassium 4.5 mmol/L (3.5-5.1); Sodium 139 mmol/L (135-145); Total Protein 6.5 g/dl (6.3-8.2); eGFR > 60.00
[2025-06-15 11:16] LABS: Glycohemoglobin (HgbA1c) 5.7 % (4.0-5.9)
[2025-06-15 14:57] LABS: Glucose - Point of Care 133 mg/dl (70-99)
[2025-06-15] MEDS: ANCEF 5 IV (16:42)
== END 2025-06-15 17:05 | disposition home or self-care (01) ==
LOC: SDS 06:20
PROVIDERS: ATTENDING PHYSICIAN Specialist
DX: S43.004A Unspecified dislocation of right shoulder joint, initial encounter (principal); X58.XXXA Exposure to other specified factors, initial encounter
CPT/HCPCS: 23472; 73020; 80053; 82962; 83036; 85027; 86850; 86900; 86901; 87070; 87075; 87205; 93005; C1776

== ENCOUNTER → 2025-07-04 12:19 | Outpatient (REF) | payer MEDICARE, SELFPAY ==
[2025-07-04 15:45] LABS: Urine Character Slightly Cloudy (Clear)
[2025-07-04 15:47] LABS: Hematocrit 39.5 % (39.0-52.0); Hemoglobin 12.5 g/dL (13.0-18.0); Mean Corp Hgb Conc. 31.6 g/dL (33.0-37.0); Mean Corpuscular Volume 92.1 fL (80.0-94.0); Nucleated Red Blood Cells % 0 % (-); Platelet Count 177 10^3/uL (130-400); Red Cell Dist. Width 16.2 % (11.5-14.5)
[2025-07-04 16:02] LABS: Blood Urea Nitrogen 38 mg/dl (9-20); Calcium 8.7 mg/dl (8.4-10.2); Carbon Dioxide 24 mmol/L (22-30); Chloride 98 mmol/L (98-107); Glucose 107 mg/dl (70-99); Potassium 4.5 mmol/L (3.5-5.1); Sodium 131 mmol/L (135-145); eGFR 37.12
[2025-07-04 17:14] LABS: Urine Squamous Cell 21-25 /LPF (Few)
[2025-07-04 17:16] LABS: Urine White Cell 0-2 /HPF (0-5)
== END ==
LOC: HWLAB 12:19
PROVIDERS: ATTENDING PHYSICIAN Nurse Practitioner Family
DX: R53.83 Other fatigue (principal)
CPT/HCPCS: 36415; 71046; 80048; 81003; 81015; 85025

== ENCOUNTER 2025-07-11 15:36 | Inpatient (IN) | payer MEDICARE, SELFPAY ==
[2025-07-11] VITALS (8 sets, daily range): BP systolic 101–143; BP diastolic 58–79; BMI 28.5; BMI 28.0
--- NOTE | 2025-07-11 11:18 | ED.GENMED ---
History of Present Illness
<ALYSSA Knott - Last Filed: 07/12/25 14:15>
General
Chief Complaint: Fever
Source: family
Exam Limitations: none
Time Seen by Provider: 07/11/25 11:12
Nursing documentation reviewed up to this point in time: agreed with
History of Present Illness
History of Present Illness:
Patient is an 84-year-old male past medical history of hypertension hyperlipidemia reflux chronic renal disease diabetes insulin-dependent presents for evaluation. reports patient was sick last Wednesday and he was sleeping all the time. He was
seen at the doctor's office then and had normal blood work and was tested for COVID and flu which were negative. Last night patient slept throughout the night and woke up with a fever today of 102. She also reports he is confused. Patient
presents awake alert he is able to tell me his name and age but is confused to year. He does follow commands. He has no complaints. reports no cough no vomiting.
Phy Exam
<ALYSSA Knott - Last Filed: 07/12/25 14:15>
General Physical Exam
General Presentation: no apparent distress
General age: appears stated age
General Skin: warm and dry
General Habitus: normal
General Mental: alert
General Hydration: appears well hydrated
Cardiovascular Exam
Cardiovascular Exam: regular rate/rhythm and tachycardia
Pulmonary Exam
Pulmonary Exam: lungs clear and no respiratory distress
Neurological Exam
Neurological Exam: alert and other (Confused to year difficulty giving history)
Musculoskeletal Exam
Musculoskeletal Exam: full ROM
Skin Exam
Skin Exam: normal color and warm/dry
Psychiatric Exam
Psychiatric Exam: normal mood/affect
Sepsis
<ALYSSA Knott - Last Filed: 07/12/25 14:15>
Sepsis Screening
Sepsis Assessment: Sepsis Ruled Out
Sepsis Screen
Sepsis Screen: Sepsis Ruled Out
Date: 07/12/25
Time: 14:15
Course
<ALYSSA Knott - Last Filed: 07/12/25 14:15>
Orders/Labs/Results
Orders:
Orders
07/11/25 11:18
Cardiac Monitoring- Treatment ONCE
IV Insert/Care/Rem.- Treatment PRN
07/11/25 11:20
Electrocardiogram (*1) Urgent
Reason for Study: Other
Other Reason for Exam: sepsis
EKG- Treatment ONCE
07/11/25 11:28
COVID-19 Antigen Urgent
Source: Nasal Swab
Complete Blood Count/With Diff Urgent
Comprehensive Metabolic Panel Urgent
Lactic Acid Q4H
Comment: CANCEL 2nd LACTIC ACID IF 1st LACTIC ACID IS LESS THAN 2
TSH Urgent
Comment: ADD ON
Blood Culture Q30M
JARRETT Source: Blood/Venous
Specimen Description:
Blood Culture Q30M
JARRETT Source: Blood/Venous
Specimen Description:
Influenza A+B Rapid Molecular Urgent
JARRETT Source: Nasal Swab
Specimen Description:
07/11/25 11:32
Acetaminophen [Tylenol] 1,000 mg PO NOW STA
07/11/25 11:37
UA Reflex to Culture [Urinalysis Reflex To Culture] Urgent
Date Specimen was Collected: 07/11/25
Time Specimen was Collected: 11:35
Urine Microscopic Reflex Cult Urgent
Urine Culture Urgent
JARRETT Source: U
Specimen Description:
Date Specimen was Collected: 07/11/25
Time Specimen was Collected: 11:35
07/11/25 13:58
CR Chest - 2 Views Urgent
Comment:
Reason For Exam: fever, flu+
07/11/25 14:00
Ibuprofen [Motrin] 600 mg PO NOW STA
07/11/25 14:01
CefTRIAXone [Rocephin] 1,000 mg IV NOW STA
07/11/25 14:14
Electrocardiogram (*1) Stat
Reason for Study: Other
Other Reason for Exam: chest pain
EKG- Treatment ONCE
07/11/25 14:20
0.9% Sodium Chloride 1000 ml [Nss] 1,000 ml IV BOLUS
07/11/25 14:21
Apixaban [Eliquis] 5 mg PO NOW STA
07/11/25 14:55
Admit/Transfer Patient As Directed
Co-Sign Provider:
Level of Care: Inpatient admission
Assign to:: Telemetry
Physician / Group: Hospitalist
Diagnosis: Sepsis
Reason for Telemetry: Arrhythmia
Date to Stop Telemetry: 07/14/25
Time to Stop Telemetry: 11:00
Reason for Hospitalization: Sepsis
Expected length of stay greater than two midnights?: Yes
ELOS- Estimated Length of Stay in days: 3
I certify the patient meets the requirements for IP care: Yes
07/11/25 14:56
PRN Pain Medication Management As Directed
May give lesser potent ordered pain med per pt: Yes
preference::
Protocol:: Medication orders for pain may be administered in a
manner that supports deferring to patient preference
when the pt is:
- Requesting an ordered lesser potent pain medication.
Least to most potent pain medications are defined
as: acetaminophen < NSAID < tramadol < opioids
(morphine, oxycodone, hydromorphone).
- Requesting a lesser dose of the same medication IF
ORDERED.
- Requesting a less intrusive route of administration
if both routes are prescribed by the provider (PO <
IV).
07/11/25 15:17
Add On- LAB Routine
Tests Added?: TSH
07/11/25 15:45
Oseltamivir Phosphate [Tamiflu] 30 mg PO BID
07/11/25 16:15
Bismuth Subsalicylate [[place] Bismuth] 262 mg PO DAILYPRN PRN stomach issuses
07/11/25 18:00
Tamsulosin [Flomax] 0.4 mg PO QPM
07/11/25 19:30
Gabapentin [Neurontin] 100 mg PO BID@193,0
07/12/25 08:00
Allopurinol [Zyloprim] 300 mg PO DAILY
Atorvastatin [Lipitor] 20 mg PO DAILY
Cyanocobalamin [Vitamin B-12] 1,000 mcg PO DAILY
Ezetimibe [Zetia] 10 mg PO DAILY
Finasteride [Proscar] 5 mg PO DAILY
Losartan [Cozaar] 100 mg PO DAILY
Multivitamin [Theragran] 1 tablet PO DAILY
Mupirocin [Bactroban 2% Ointment] See Dose Instructions TOPICAL DAILY
Pantoprazole [Protonix] 40 mg PO DAILY
mirabegron [Myrbetriq] See Dose Instructions PO DAILY
07/14/25 11:00
DC Protocol for Telemetry ONCE
Abnormal Lab Results
07/11/25 07/11/25
11:28 11:37
WBC 11.0 H 10^3/uL
(4.8-10.8)
RBC 3.91 L 10^6/uL
(4.70-6.10)
Hgb 11.5 L g/dL
(13.0-18.0)
Hct 34.8 L %
(39.0-52.0)
RDW 15.9 H %
(11.5-14.5)
Abs Immat Gran (auto) 0.2 H 10^3/uL
(0-0.05)
Absolute Neuts (auto) 9.9 H 10^3/uL
(1.4-6.5)
Absolute Lymphs (auto) 0.4 L 10^3/uL
(1.2-3.4)
Immature Gran % 1.6 H %
(0-0.5)
Neutrophils % 90.7 H %
(42.2-75.2)
Lymphocytes % 3.4 L %
(20.5-51.1)
Sodium 132 L mmol/L
(135-145)
BUN 22 H mg/dl
(9-20)
Glucose 150 H mg/dl
(70-99)
Alkaline Phosphatase 212 H U/L
(38-126)
Ur Occult Blood Reflex 2+ A
(Negative)
Urine Nitrite (Reflex) Positive A
(Negative)
Leukocyte Esterase Rfl 1+ A
(Negative)
Urine WBC (Reflex) 16-20 A /HPF
(0-5)
Urine Bacteria (Reflex) Many A
(Negative)
Urine Albumin (Reflex) 3+ A
(Neg - Trace)
07/11/25 11:28
07/11/25 11:28
Vital Signs
Initial and Last Documented VS:
Initial Vital Signs
Temp Pulse Resp BP Pulse Ox
104.2 F H 115 26 124/70 96
07/11/25 10:53 07/11/25 10:53 07/11/25 10:53 07/11/25 10:53 07/11/25 10:53
Last Documented Vital Signs
Temp Pulse Resp BP Pulse Ox
98.4 F 74 16 99/56 100
07/12/25 11:44 07/12/25 11:44 07/12/25 11:44 07/12/25 11:44 07/12/25 11:44
Vine Pruner consulted with Physician
Vine Pruner consulted with physician?: Yes
Name of Physician Consulted: Michael
<Charlie Rodriguez MD - Last Filed: 07/11/25 14:12>
Orders/Labs/Results
Orders:
Orders
07/11/25 11:18
Cardiac Monitoring- Treatment ONCE
IV Insert/Care/Rem.- Treatment PRN
07/11/25 11:20
Electrocardiogram (*1) Urgent
Reason for Study: Other
Other Reason for Exam: sepsis
EKG- Treatment ONCE
07/11/25 11:28
COVID-19 Antigen Urgent
Source: Nasal Swab
Complete Blood Count/With Diff Urgent
Comprehensive Metabolic Panel Urgent
Lactic Acid Q4H
Comment: CANCEL 2nd LACTIC ACID IF 1st LACTIC ACID IS LESS THAN 2
TSH Urgent
Comment: ADD ON
Blood Culture Q30M
JARRETT Source: Blood/Venous
Specimen Description:
Blood Culture Q30M
JARRETT Source: Blood/Venous
Specimen Description:
Influenza A+B Rapid Molecular Urgent
JARRETT Source: Nasal Swab
Specimen Description:
07/11/25 11:32
Acetaminophen [Tylenol] 1,000 mg PO NOW STA
07/11/25 11:37
UA Reflex to Culture [Urinalysis Reflex To Culture] Urgent
Date Specimen was Collected: 07/11/25
Time Specimen was Collected: 11:35
Urine Microscopic Reflex Cult Urgent
Urine Culture Urgent
JARRETT Source: U
Specimen Description:
Date Specimen was Collected: 07/11/25
Time Specimen was Collected: 11:35
07/11/25 13:58
CR Chest - 2 Views Urgent
Comment:
Reason For Exam: fever, flu+
07/11/25 14:00
Ibuprofen [Motrin] 600 mg PO NOW STA
07/11/25 14:01
CefTRIAXone [Rocephin] 1,000 mg IV NOW STA
07/11/25 14:14
Electrocardiogram (*1) Stat
Reason for Study: Other
Other Reason for Exam: chest pain
EKG- Treatment ONCE
07/11/25 14:20
0.9% Sodium Chloride 1000 ml [Nss] 1,000 ml IV BOLUS
07/11/25 14:21
Apixaban [Eliquis] 5 mg PO NOW STA
07/11/25 14:55
Admit/Transfer Patient As Directed
Co-Sign Provider:
Level of Care: Inpatient admission
Assign to:: Telemetry
Physician / Group: Hospitalist
Diagnosis: Sepsis
Reason for Telemetry: Arrhythmia
Date to Stop Telemetry: 07/14/25
Time to Stop Telemetry: 11:00
Reason for Hospitalization: Sepsis
Expected length of stay greater than two midnights?: Yes
ELOS- Estimated Length of Stay in days: 3
I certify the patient meets the requirements for IP care: Yes
07/11/25 14:56
PRN Pain Medication Management As Directed
May give lesser potent ordered pain med per pt: Yes
preference::
Protocol:: Medication orders for pain may be administered in a
manner that supports deferring to patient preference
when the pt is:
- Requesting an ordered lesser potent pain medication.
Least to most potent pain medications are defined
as: acetaminophen < NSAID < tramadol < opioids
(morphine, oxycodone, hydromorphone).
- Requesting a lesser dose of the same medication IF
ORDERED.
- Requesting a less intrusive route of administration
if both routes are prescribed by the provider (PO <
IV).
07/11/25 15:17
Add On- LAB Routine
Tests Added?: TSH
07/11/25 15:45
Oseltamivir Phosphate [Tamiflu] 30 mg PO BID
07/11/25 16:15
Bismuth Subsalicylate [[place] Bismuth] 262 mg PO DAILYPRN PRN stomach issuses
07/11/25 18:00
Tamsulosin [Flomax] 0.4 mg PO QPM
07/11/25 19:30
Gabapentin [Neurontin] 100 mg PO BID@1930,2230
07/12/25 08:00
Allopurinol [Zyloprim] 300 mg PO DAILY
Atorvastatin [Lipitor] 20 mg PO DAILY
Cyanocobalamin [Vitamin B-12] 1,000 mcg PO DAILY
Ezetimibe [Zetia] 10 mg PO DAILY
Finasteride [Proscar] 5 mg PO DAILY
Losartan [Cozaar] 100 mg PO DAILY
Multivitamin [Theragran] 1 tablet PO DAILY
Mupirocin [Bactroban 2% Ointment] See Dose Instructions TOPICAL DAILY
Pantoprazole [Protonix] 40 mg PO DAILY
mirabegron [Myrbetriq] See Dose Instructions PO DAILY
07/14/25 11:00
DC Protocol for Telemetry ONCE
Abnormal Lab Results
07/11/25 07/11/25
11:28 11:37
WBC 11.0 H 10^3/uL
(4.8-10.8)
RBC 3.91 L 10^6/uL
(4.70-6.10)
Hgb 11.5 L g/dL
(13.0-18.0)
Hct 34.8 L %
(39.0-52.0)
RDW 15.9 H %
(11.5-14.5)
Abs Immat Gran (auto) 0.2 H 10^3/uL
(0-0.05)
Absolute Neuts (auto) 9.9 H 10^3/uL
(1.4-6.5)
Absolute Lymphs (auto) 0.4 L 10^3/uL
(1.2-3.4)
Immature Gran % 1.6 H %
(0-0.5)
Neutrophils % 90.7 H %
(42.2-75.2)
Lymphocytes % 3.4 L %
(20.5-51.1)
Sodium 132 L mmol/L
(135-145)
BUN 22 H mg/dl
(9-20)
Glucose 150 H mg/dl
(70-99)
Alkaline Phosphatase 212 H U/L
(38-126)
Ur Occult Blood Reflex 2+ A
(Negative)
Urine Nitrite (Reflex) Positive A
(Negative)
Leukocyte Esterase Rfl 1+ A
(Negative)
Urine WBC (Reflex) 16-20 A /HPF
(0-5)
Urine Bacteria (Reflex) Many A
(Negative)
Urine Albumin (Reflex) 3+ A
(Neg - Trace)
07/11/25 11:28
07/11/25 11:28
Vital Signs
Initial and Last Documented VS:
Initial Vital Signs
Temp Pulse Resp BP Pulse Ox
104.2 F H 115 26 124/70 96
07/11/25 10:53 07/11/25 10:53 07/11/25 10:53 07/11/25 10:53 07/11/25 10:53
Last Documented Vital Signs
Temp Pulse Resp BP Pulse Ox
98.4 F 74 16 99/56 100
07/12/25 11:44 07/12/25 11:44 07/12/25 11:44 07/12/25 11:44 07/12/25 11:44
<ALYSSA Knott - Last Filed: 07/12/25 14:15>
MDM/Problems Addressed
Differential Diagnosis Includes:
Not limited to COVID influenza , COVID influenza, UTI
MDM/Problems Addressed:
As documented patient is an 84-year-old male who presents with fever confusion weakness for the past several days. Woke up febrile this morning at 102. He arrived febrile at 104.2. reports very tired and confused however no recent cough. He
tested positive for influenza here in the ER. He is awake alert mildly confused but follows commands. He does look like he also has a UTI. His sodium minimally low at 132 his BUN is minimally elevated 22. Fluids ordered. His lactic is
normal.Rocephin ordered. Incidentally he was also found to be in A-fib which is new.
Will give a dose of Eliquis. This is new. Patient is stable however with continued confusion in the setting of influenza UTI and new onset A-fib will require admission. Case reviewed with ED physician who evaluated patient.
EKGs reviewed by Dr. Weiss cardiology who does feel that this is more of a sinus rhythm with frequent PACs. Hospitalist made aware.
Chronic conditions affecting care:
htn
<ALYSSA Knott - Last Filed: 07/12/25 14:15>
*Radiology
Radiology exam reviewed: radiology read reviewed
*Pulse Oximetry
SaO2: 96
Oxygen Mode of Delivery: Room air
Patient hypoxic: no
*EKG
Interpreted by ED Provider?: Yes
Comparison EKG: changes noted (now in afib )
Heart Rate: 107
Rate: tachycardiac
Rhythm: a-fib
Ischemia: non-specific ST changes
*Critical Care Note
Total Time (30-74mins, 75-104mins- exclusive of procedures): Not Applicable
Data Reviewed
Review of Other/Old Records Reveals: Labs
Source: patient and spouse
ED Attending Note
<ALYSSA Knott - Last Filed: 07/12/25 14:15>
-
Portions of this chart may have been created with voice recognition software.� Occasional wrong word or��sound alike� substitutions may have occurred due to the inherent limitations of voice recognition software.
<Charlie Rodriguez MD - Last Filed: 07/11/25 14:12>
ED Attending Note
Patient seen and examined by attending physician: Yes
ED Attending Note:
I have seen and evaluated the patient with a [id number] encounter. I have spoken to the advance practicer provider and involved in the medical history, the physical exam, medical decision making.
Evaluation and management service: agree unless noted differently below.
Results interpretation: agree unless noted differently below.
Focused HPI: 84-year-old male with history as noted presents for evaluation of fever and confusion, fatigue. is at bedside and helps with history. It sounds like he has been sick for the past week. She says patient sleeping all day and
mildly confused. Today had high fever which prompted ER visit. She does note that he had outpatient urine, chest x-ray, flu/COVID last week that was nondiagnostic but symptoms progressed since then. Patient denies any cough, shortness of breath,
chest pain. Denies abdominal pain. He did have some loose stools the past few days. He has not had any dysuria but has had some foul smell to his urine. notes history of sepsis from UTIs in the past.
Physical exam: Awake and alert, nontoxic. Tachycardic, tachypneic, febrile. Normotensive. Abdomen is soft and nontender. Lungs sound generally clear. Tachycardic but no murmurs appreciated. He does have a wound on the right foot with no signs
of acute infection.
Medical Decision Makin-year-old male presents with fever and confusion, fatigue over the past week. Vitals and exam as above. Labs here showed leukocytosis to 11, predominant neutrophils. Chemistry shows creatinine 1.3 at baseline. Lactate
less than 2. Blood culture sent off. Urinalysis positive for infection. He is also positive for influenza. Suspect influenza is the primary etiology of his symptoms but given history of UTI we will cover with antibiotics pending cultures for
UTI. Plan for admission for continued treatment.
Discharge Plan
Departure
Patient Disposition: Admit
Date of Disposition: 07/11/25
Time of Disposition: 14:25
Admit to: Telemetry
Admit to doctor: hospitalist
Presentation/result/management discussed w/ accepting MD/DO: Hospitalist
Patient with high blood pressure during this ER visit?: Yes
Condition: Fair
Covid-19: Not Applicable
Discharge Problem:
Influenza, Acute UTI, Atrial fibrillation
Interventions
Interventions:
*Risk Screen - Suicide Last Done: 07/11/25 10:53
*General Assessment Last Done: 07/11/25 10:53
*Neglect/Abuse Screening Last Done: 07/11/25 10:53
*ED- Fall Risk Assessment Last Done: 07/11/25 11:32
*ED COVID-19 Vaccine History Last Done: 07/11/25 11:32
*ED Influenza Vaccine History Last Done: 07/11/25 11:32
*Nursing Disposition Last Done: 07/11/25 16:25
ED- Neurological Assessment Last Done: 07/11/25 11:27
ED-Skin Assessment Last Done: 07/11/25 11:27
Discharge Date and Time
Discharge Date/Time: 07/11/25 16:25
[2025-07-11] MEDS: TYLENOL 1000 MG PO (11:37)
[2025-07-11 11:55] LABS: Hematocrit 34.8 % (39.0-52.0); Hemoglobin 11.5 g/dL (13.0-18.0); Mean Corp Hgb Conc. 33.0 g/dL (33.0-37.0); Mean Corpuscular Volume 89.0 fL (80.0-94.0); Nucleated Red Blood Cells % 0 % (-); Platelet Count 242 10^3/uL (130-400); Red Cell Dist. Width 15.9 % (11.5-14.5)
[2025-07-11 12:08] LABS: Urine Character Clear (Clear)
[2025-07-11 12:10] LABS: ALT (SGPT) 41 U/L (0-50); AST (SGOT) 38 U/L (17-59); Albumin 3.7 g/dl (3.5-5.0); Alkaline Phosphatase 212 U/L (38-126); Blood Urea Nitrogen 22 mg/dl (9-20); Calcium 9.0 mg/dl (8.4-10.2); Carbon Dioxide 24 mmol/L (22-30); Chloride 103 mmol/L (98-107); Estimated Creatinine Clearance 54 ml/min; Glucose 150 mg/dl (70-99); Potassium 4.9 mmol/L (3.5-5.1); Sodium 132 mmol/L (135-145); Total Protein 6.5 g/dl (6.3-8.2); eGFR 54.85
[2025-07-11 12:14] LABS: COVID-19 Antigen Negative (Negative)
[2025-07-11 12:16] LABS: Urine Red Blood Cell 0-2 /HPF (0-2); Urine White Cell 16-20 /HPF (0-5)
[2025-07-11] MEDS: MOTRIN 600 MG PO (14:02)
[2025-07-11] MEDS: ROCEPHIN 1000 MG IV (14:06)
[2025-07-11] MEDS: NSS 1000 IV ×2 (14:24→17:48)
[2025-07-11] MEDS: ELIQUIS 5 MG PO (14:28)
--- NOTE | 2025-07-11 14:59 | HPS.HSE ---
Addendum entered and electronically signed by Serena Menendez MD 07/11/25 19:09:
This is an addendum to the H&P written by Alli Carlisle on 07/11/2025. �Patient seen and examined independently with resident.
84-year-old male past medical history of prior UTI, CKD, diabetes, hypertension, hyperlipidemia, neuropathy, BPH, GERD, gout, obstructive sleep apnea, presenting with lethargy sleeping and tested negative for COVID and flu. �Had fever 102 last time
and confused. �No cough or vomiting.
Fever up to 104.2. �Tachycardic up to 115. �EKG showed atrial fibrillation heart rate 99 but later appears to be in sinus arrhythmia currently.
Urinalysis shows 16-20 WBC, + leukocyte esterase, positive nitrates. COVID negative. Flu B positive. CXR negative.
Patient with sepsis secondary to Influenza B and possible�UTI as well. EKG initially thought to be Afib however cardiology thinks sinus rythmn.�
IV fluids. Check blood cultures. Check urine culture. Start tamiflu. Ceftriaxone.
Patient given Eliquis but hold further Eliquis.�
Original Note:
Family Physician
-
Family Physician: Cristy Moe
Chief Complaint
-
Fevers, confusion
History of Present Illness
84-year-old male with history of type 2 diabetes, hypertension, hyperlipidemia, GERD presents to ED with his reporting confusion, fevers, fatigue in the past 24 hours. notes that patient has been feeling unwell for the past 1 week. He
was seen by his family doctor a week ago was given oral antibiotics for presumed UTI as his UA was abnormal. notes that he has been sleeping all day and has not got the energy back after, even after completing the course of the antibiotic.
notes that she noticed patient was confused yesterday and was sleeping more than usual. On interview with the patient, he is AAO into 3, he denies cough, chest pain, shortness of breath, palpitations. Dysuria/frequency/urgency/incontinence.
In the ED patient is febrile oral temp is 102.8 F. He is positive for influenza B, WBC 11,000, UA positive for nitrates and leukocytes. Initial EKG showed atrial fibrillation which is new onset , with heart rate of 120. Soon patient reverted back
to sinus rhythm by himself. He is not on AC at home and has not been diagnosed with afib in the past. He had recent right shoulder revision surgery on 06/15/25.
Medical History
Past Medical History
Past Medical History: Reports HTN, Hypercholesterolemia and IDDM
Additional Past Medical History:
CKD IIIA
Peripheral Neuropathy
BPH
GERD
Gout
WINDY
Past Surgical History: Reports Orthopedic (right shoulder replacement )
Social History
Tobacco: Non-smoker
Alcohol: None
Drug: None
Personal:
Living: With Family
Employment: Retired
Family History
Family History: Not pertinent
Allergies / Home Medications
Allergies reflects when Allergies were last updated in [facility].
Home Medications with original date entered in [facility]
Allergy/Medication List:
Allergies
Allergy/AdvReac Type Severity Reaction Status Date / Time
No Known Allergies Allergy Verified 06/15/25 10:03
Home Medications
alfuzosin 10 mg tablet,extended release 24 hr 10 mg PO QPM Urinary Issue 04/28/25
allopurinol 300 mg tablet 300 mg PO DAILY Gout 04/28/25
atorvastatin 20 mg tablet 20 mg PO DAILY High Cholesterol 04/28/25
cyanocobalamin (vitamin B-12) 1,000 mcg tablet 1,000 mcg PO DAILY Supplement 04/28/25
dulaglutide 4.5 mg/0.5 mL subcutaneous pen injector (Trulicity) 4.5 mg SC TORRES Diabetes 04/28/25
ezetimibe 10 mg tablet 10 mg PO DAILY High Cholesterol 04/28/25
gabapentin 100 mg capsule 100 mg PO BID@1930,2230 04/28/25
mirabegron 25 mg tablet,extended release 24 hr (Myrbetriq) 25 mg PO DAILY Urinary Issue 04/28/25
mupirocin 2 % topical ointment 1 applic topical DAILY right foot 04/28/25
pantoprazole 40 mg tablet,delayed release 40 mg PO DAILY Gastrointestinal Issue 04/28/25
therapeutic multivitamin 1 tab PO DAILY Supplement 04/28/25
dapagliflozin propanediol 10 mg tablet (Farxiga) 10 mg PO DAILY 06/15/25
finasteride 5 mg tablet 5 mg PO DAILY 06/15/25
losartan 100 mg-hydrochlorothiazide 12.5 mg tablet 1 tab PO DAILY Blood Pressure #1 tab 06/15/25
bismuth subsalicylate 262 mg/15 mL oral suspension (Kaopectate (bismuth subsalicylate)) 262 mg PO DAILYPRN PRN stomach issuses 07/11/25
Review of Systems
-
A 12 point ROS was completed and negative except as noted: Yes
Physical Exam
Vital Signs
Vital Signs
Temp Pulse Resp BP Pulse Ox
102.8 F H 94 25 135/61 95
07/11/25 13:45 07/11/25 14:30 07/11/25 14:30 07/11/25 14:00 07/11/25 14:30
Physical Exam
General: Comfortable and Conversant
HEENT: NormoCephalic and Anicteric
Respiratory: Clear
Cardiac: S1/S2 and Regular Rhythm
GI: Soft, Non Tender, Non Distended and Normal Bowel Sounds
Musculoskeletal: No Clubbing, No Cyanosis and No Edema
Skin: Warm and Dry
Neuro: AO x 3
Hematologic/Lymphatic: No Lymphadenopathy
Psych: Calm
Laboratory Results
-
07/11/25 11:28
07/11/25 11:28
Laboratory Results
Lactic Acid Cancelled 07/11/25 15:30
Total Bilirubin 1.3 mg/dl (0.2-1.3) 07/11/25 11:28
AST 38 U/L (17-59) 07/11/25 11:28
ALT 41 U/L (0-50) 07/11/25 11:28
Alkaline Phosphatase 212 U/L (38-126) H 07/11/25 11:28
Data Reviewed
-
Diagnostic Radiology: Image Personally Visualized and interpreted, Report Reviewed by me and Discussed with Physician
Medical Tests (Nuc Med, Echo, EKG etc): Image Personally Visualized and interpreted, Report Reviewed by me and Discussed with Physician
Lab Data: Labs Reviewed by me and Discussed with Physician
Impression/Plan
-
IMPRESSION:
Sepsis secondary to influenza and UTI
Influenza B positive
New onset paroxysmal A-fib
Hyponatremia
Type 2 diabetes mellitus with diabetic neuropathy
Essential hypertension
Hyperlipidemia
Stage IIIa CKD
BPH with incontinence
GERD
History of gout
PLAN:
#Sepsis secondary to influenza and UTI
Febrile, white count of 11,000
Change in mental status in the past 24 hours
Questionable medication side effect - farxiga, high risk for UTI in men
Check blood culture
Check urine culture
Start IV ceftriaxone
Continue IV fluids
Tylenol 625mg Q6 prn (<4g/day)
Monitor WBC and temperature curve
Hold farxiga.
#Influenza B positive
Start Tamiflu 30 mg twice daily since change in mental status and fever started 24 hours ago
Renal dosing with Tamiflu with creatinine clearance of 54
Continue IV fluids
Monitor temperature curve and white count
#New onset paroxysmal atrial fibrillation
Admit to telemetry
Initial EKG on 07/11 showed atrial fibrillation
Patient is doing reverted to normal sinus rhythm on his own
CHADVASc score 3
Start Eliquis 5 mg daily
If patient patient converts back to A-fib consider starting beta-lucille
Check echocardiogram
Check TSH
Monitor rate and rhythm
#Hyponatremia
Likely due to dehydration
continue IV fluids
Monitor BMP type 2 diabetes mellitus with
#Type 2 diabetes mellitus with diabetic neuropathy
Hold Trulicity
Blood glucose 150
Most recent A1c on 04/29/2025 was 5.9
Sliding scale
Hold dapagliflozin
#Essential hypertension
Continue home medication
#Hyperlipidemia
Continue atorvastatin
#BPH with incontinence
Continue finasteride and mirabegron
#GERD
Continue PPI
#CKD stage IIIb
Monitor BMP
#History of gout
continue allopurinol
Full code
Regular diet
DVT prophylaxis - Eliquis
[2025-07-11] MEDS: TAMIFLU 30 MG PO ×2 (15:51→22:56)
[2025-07-11 16:09] LABS: TSH 1.78 uIU/ml (0.47-4.68)
--- NOTE | 2025-07-11 16:22 | W.PN.UPDATE ---
Update Note
Progress Note Update
Spoke with cardiology and they confirmed patient not having afib but sinus arrythmia. Will stop eliquis and hold off on echo.
--- NOTE | 2025-07-11 17:03 | CM ---
Chart reviewed, attempted to meet with pt but he had left ED. Recently admitted 04/2025.
Lives with his in 2 story home, [address]. Has first floor half bath, full flight to second floor bedroom and full bath.
Independent in ADLs, personal care and ambulation. Uses RW, has non healing foot ulcers.
Other DME includes, CPAP, Dexcom monitor, raised toilet seat and shower bench.
Confirmed prescription coverage last admit.
Hx [facility] and [facility] for Rehab.
PCP: Cristy Moe
Pharmacy: [facility]
Discharge disposition pending ongoing medical evaluation, CM will continue to follow for all discharge planning needs.
[2025-07-11] MEDS: FLOMAX 0.4 MG PO (17:49)
[2025-07-11] MEDS: NEURONTIN 100 MG PO ×2 (17:49→22:57)
--- NOTE | 2025-07-11 19:19 | RESPNOTE ---
Patient refused to wear Bipap
[2025-07-12] VITALS (7 sets, daily range): BP systolic 99–147; BP diastolic 56–79; PULSE 73; O2SAT 95; BMI 28.0
[2025-07-12] MEDS: NSS 1000 IV ×2 (03:27→12:09)
--- NOTE | 2025-07-12 05:52 | PTCARENOTE ---
Flavio Saleem RN noticed cardiac change on tele monitor. Pt's HR increased from 60s-80s into 90s-100s. Tele monitor read 'afib'. Pt's monitor difficult to see 'afib'. RN reached out to ALYSSA Mina. ALYSSA ordered EKG for Pt. RN and PCT
obtained EKG. FITNESS AND WELLNESS MANAGER reviewed EKG. No new interventions ordered at this time.
[2025-07-12] MEDS: BACTROBAN 2% OINTMENT 1 APPLIC TOPICAL (08:16)
[2025-07-12] MEDS: THERAGRAN 1 TABLET PO (08:17)
[2025-07-12] MEDS: PROSCAR 5 MG PO (08:17)
[2025-07-12] MEDS: ZETIA 10 MG PO (08:17)
[2025-07-12] MEDS: TYLENOL 650 MG PO ×2 (08:17→21:51)
[2025-07-12] MEDS: LIPITOR 20 MG PO (08:17)
[2025-07-12] MEDS: VITAMIN B-12 1000 MCG PO (08:17)
[2025-07-12] MEDS: TAMIFLU 30 MG PO (08:17)
[2025-07-12] MEDS: PROTONIX 40 MG PO (08:17)
[2025-07-12] MEDS: ZYLOPRIM 300 MG PO (08:18)
[2025-07-12] MEDS: ORETIC 12.5 MG PO (08:18)
[2025-07-12] MEDS: COZAAR 100 MG PO (08:18)
[2025-07-12 08:30] LABS: Hematocrit 31.3 % (39.0-52.0); Hemoglobin 10.7 g/dL (13.0-18.0); Mean Corp Hgb Conc. 34.2 g/dL (33.0-37.0); Mean Corpuscular Volume 89.4 fL (80.0-94.0); Nucleated Red Blood Cells % 0 % (-); Platelet Count 200 10^3/uL (130-400); Red Cell Dist. Width 15.9 % (11.5-14.5)
[2025-07-12 09:05] LABS: Blood Urea Nitrogen 22 mg/dl (9-20); Calcium 8.3 mg/dl (8.4-10.2); Carbon Dioxide 21 mmol/L (22-30); Chloride 108 mmol/L (98-107); Estimated Creatinine Clearance 70 ml/min; Glucose 120 mg/dl (70-99); Potassium 4.7 mmol/L (3.5-5.1); Sodium 131 mmol/L (135-145); eGFR > 60.00
--- NOTE | 2025-07-12 11:35 | WOUNDNOTE ---
[facility] RN NOTE: Reviewed chart and met with patient. 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 See worklist for description and measurements. He sees Dr. Starkey every 3-6
weeks. Per patient he has been using Mupirocin on both wounds. Will continue as Mupirocin during in-patient stay. Patient reports he has off-loading devices for feet, but does not like. He cannot use scooter right now due to shoulder issues. Patient
said he will continue to follow up with Dr. Starkey after hospitalization. His sacrum and heel are intact and he demonstrated ability to turn in bed unassisted. Reminded patient to turn/change position frequently. Will confirm orders. Discharge and
careplan updated. KWASI Del Rosario update. Will sign off.
--- NOTE | 2025-07-12 11:56 | WOUNDNOTE ---
LEFT PLANTAR WOUND
--- NOTE | 2025-07-12 11:57 | WOUNDNOTE ---
RIGHT PLANTAR FOOT WOUND
--- NOTE | 2025-07-12 12:46 | W.PN.HOSP.TC ---
Today's Communication/Plan
-
abx
f/u cultures
stop hctz
Assessment / Plan
Assessment / Plan
Physical Exam
General: Comfortable and Conversant
HEENT: NormoCephalic and Anicteric
Respiratory: Clear
Cardiac: S1/S2 and Regular Rhythm
GI: Soft, Non Tender, Non Distended and Normal Bowel Sounds
Musculoskeletal: No Clubbing, No Cyanosis and No Edema
Skin: Warm and Dry
Neuro: AO x 3
Hematologic/Lymphatic: No Lymphadenopathy
Psych: Calm
#Sepsis
� Insetting of source of UTI and influenza B along with acute metabolic encephalopathy
� Secondary to influenza and UTI
� Treat as below
�Supportive care
#Influenza
�Continue Tamiflu
#UTI
� Preliminary E. coli
� Continue ceftriaxone
� Follow-up urine and blood cultures
#Acute metabolic encephalopathy
� Treatment as above
#Hyponatremia
Likely due to dehydration
-continue IV fluids
� Stop hydrochlorothiazide
#Type 2 diabetes mellitus with diabetic neuropathy
Hold Trulicity
Blood glucose 150
Most recent A1c on 04/29/2025 was 5.9
Sliding scale
Hold dapagliflozin
#Essential hypertension
Continue home medication
#Hyperlipidemia
Continue atorvastatin
#BPH with incontinence
Continue finasteride and mirabegron
#GERD
Continue PPI
#CKD stage IIIb
Monitor BMP
#History of gout
continue allopurinol
Full code
Regular diet
DVT prophylaxis - Eliquis
Anticipated Discharge: 24 - 48 hours
Subjective/Interval History
-
Date of Service: July 12, 2025
No acute events overnight
Objective Data
-
Labs:
Laboratory Results
07/12/25
08:10
WBC 9.2
Hgb 10.7 L
Hct 31.3 L
Plt Count 200
Sodium 131 L
Potassium 4.7
Chloride 108 H
Carbon Dioxide 21 L
BUN 22 H
Creatinine 1.0
Glucose 120 H
Calcium 8.3 L
Vital Signs:
Vital Signs
Temp Pulse Resp BP Pulse Ox
98.4 F 74 16 99/56 100
07/12/25 11:44 07/12/25 11:44 07/12/25 11:44 07/12/25 11:44 07/12/25 11:44
I&O
07/11/25 07/12/25 07/13/25
06:59 06:59 06:59
Intake Total 480 / 480
Output Total 1000 / 1000
Balance -520 / -520
Review of Systems
-
History Source: Patient
Constitutional: Reports No Symptoms
EENT: Reports No Symptoms Reported
Respiratory: Reports No Symptoms
Cardiac: Reports No Symptoms
Abdomen/GI: Reports No Symptoms
Genitourinary: Reports No Symptoms
Musculoskeletal: Reports No Symptoms
Skin: Reports No Symptoms
Neuro: Reports No Symptoms
Data Reviewed
-
Diagnostic Radiology: Report Reviewed by me
Labs: Labs Reviewed by me
[2025-07-12] MEDS: LR 1000 IV (13:05)
[2025-07-12] MEDS: ROCEPHIN 1000 MG IV (13:06)
[2025-07-12] MEDS: STERILE WATER FOR INJECTION 10 ML IV (13:06)
[2025-07-12] MEDS: FLUSH (NSS) 1 FLUSH IV ×2 (13:07→13:10)
--- NOTE | 2025-07-12 14:54 | CM ---
patient seen at bedside
PT eval - pending
influenza B pos
patient states was going to outpatient rehab prior to hospitalization at [facility] 3x/wk
Plan: home, outpatient vs. home health, pending PT EVELYN valdes to follow for discharge planning needs
[2025-07-12] MEDS: FLOMAX 0.4 MG PO (17:08)
[2025-07-12 21:30] LABS: Glucose - Point of Care 228 mg/dl (70-99)
[2025-07-12] MEDS: NEURONTIN 100 MG PO ×2 (21:51→23:07)
[2025-07-12] MEDS: TAMIFLU 75 MG PO (21:51)
[2025-07-13] MEDS: LR 1000 IV (02:19)
[2025-07-13 03:00] VITALS: BP 130/75
[2025-07-13 07:08] LABS: Hematocrit 33.2 % (39.0-52.0); Hemoglobin 10.8 g/dL (13.0-18.0); Mean Corp Hgb Conc. 32.5 g/dL (33.0-37.0); Mean Corpuscular Volume 90.0 fL (80.0-94.0); Platelet Count 233 10^3/uL (130-400); Red Cell Dist. Width 15.9 % (11.5-14.5)
[2025-07-13 07:37] VITALS: BP 132/76
[2025-07-13 07:57] LABS: ALT (SGPT) 50 U/L (0-50); AST (SGOT) 34 U/L (17-59); Albumin 3.0 g/dl (3.5-5.0); Alkaline Phosphatase 192 U/L (38-126); Blood Urea Nitrogen 22 mg/dl (9-20); Calcium 8.6 mg/dl (8.4-10.2); Carbon Dioxide 23 mmol/L (22-30); Chloride 110 mmol/L (98-107); Estimated Creatinine Clearance 70 ml/min; Glucose 129 mg/dl (70-99); Potassium 4.4 mmol/L (3.5-5.1); Sodium 139 mmol/L (135-145); Total Protein 5.6 g/dl (6.3-8.2); eGFR > 60.00
[2025-07-13] MEDS: PROTONIX 40 MG PO (08:46)
[2025-07-13] MEDS: ZETIA 10 MG PO (08:46)
[2025-07-13] MEDS: TAMIFLU 75 MG PO (08:47)
[2025-07-13] MEDS: VITAMIN B-12 1000 MCG PO (08:47)
[2025-07-13] MEDS: COZAAR 100 MG PO (08:47)
[2025-07-13] MEDS: THERAGRAN 1 TABLET PO (08:47)
[2025-07-13] MEDS: LIPITOR 20 MG PO (08:48)
[2025-07-13] MEDS: BACTROBAN 2% OINTMENT 1 APPLIC TOPICAL (08:48)
[2025-07-13] MEDS: ZYLOPRIM 300 MG PO (08:48)
[2025-07-13] MEDS: PROSCAR 5 MG PO (08:48)
[2025-07-13 11:14] VITALS: BP 125/81
--- NOTE | 2025-07-13 12:05 | W.PN.HOSP.TC ---
Addendum entered and electronically signed by Neal Doan MD 07/14/25 13:50:
[id number]
Original Note:
Today's Communication/Plan
-
Tamiflu
abx - 7 day course
f/u cbc, cmp outpt
stop hctz
Assessment / Plan
Assessment / Plan
Physical Exam
General: Comfortable and Conversant
HEENT: NormoCephalic and Anicteric
Respiratory: Clear
Cardiac: S1/S2 and Regular Rhythm
GI: Soft, Non Tender, Non Distended and Normal Bowel Sounds
Musculoskeletal: No Clubbing, No Cyanosis and No Edema
Skin: Warm and Dry
Neuro: AO x 3
Hematologic/Lymphatic: No Lymphadenopathy
Psych: Calm
#Sepsis
� Insetting of source of UTI and influenza B along with acute metabolic encephalopathy
� Secondary to influenza and UTI
� Treat as below
�Supportive care
#Influenza
�Continue Tamiflu x 5 days
#UTI
� E. coli
� ceftriaxone - switch to cefdinir x 7 day total course
#Acute metabolic encephalopathy
� Treatment as above
#Hyponatremia
Likely due to dehydration
-continue IV fluids
� Stop hydrochlorothiazide
#Type 2 diabetes mellitus with diabetic neuropathy
Hold Trulicity
Blood glucose 150
Most recent A1c on 04/29/2025 was 5.9
Sliding scale
Hold dapagliflozin
#Essential hypertension
Losartan, stop HCTZ
#Hyperlipidemia
Continue atorvastatin
#Transaminitis
-likely 2/2 to sepsis
-f/u outpt
#BPH with incontinence
Continue finasteride and mirabegron
#GERD
Continue PPI
#CKD stage IIIb
Monitor BMP
#History of gout
continue allopurinol
Full code
Regular diet
DVT prophylaxis - HSQ
More than 30 minutes spent in discharge including
Final examination of the patient
Summarizing hospital stay
Instructions for continuing care to all relevant caregivers
Preparation of discharge records, prescriptions, and referral forms
Total time spent (in minutes): 37
Anticipated Discharge: Today
Subjective/Interval History
-
Date of Service: July 13, 2025
Feels well. No acute events overnight
Objective Data
-
Labs:
Laboratory Results
07/13/25
06:22
WBC 8.5
Hgb 10.8 L
Hct 33.2 L
Plt Count 233
Sodium 139 D
Potassium 4.4
Chloride 110 H
Carbon Dioxide 23
BUN 22 H
Creatinine 1.0
Glucose 129 H
Calcium 8.6
Total Bilirubin 0.4
AST 34
ALT 50
Alkaline Phosphatase 192 H
Vital Signs:
Vital Signs
Temp Pulse Resp BP Pulse Ox
98.6 F 84 16 125/81 97
07/13/25 11:14 07/13/25 11:14 07/13/25 11:14 07/13/25 11:14 07/13/25 11:14
I&O
07/12/25 07/13/25 07/14/25
06:59 06:59 06:59
Intake Total 480 / 480 510 / 510
Output Total 1000 / 1000 2024
Balance -520 / -520 -1515 / -1515
Review of Systems
-
History Source: Patient
Constitutional: Reports No Symptoms
EENT: Reports No Symptoms Reported
Respiratory: Reports No Symptoms
Cardiac: Reports No Symptoms
Abdomen/GI: Reports No Symptoms
Genitourinary: Reports No Symptoms
Musculoskeletal: Reports No Symptoms
Skin: Reports No Symptoms
Neuro: Reports No Symptoms
Data Reviewed
-
Diagnostic Radiology: Report Reviewed by me
Labs: Labs Reviewed by me
--- NOTE | 2025-07-13 12:15 | W.DS.TRANS ---
DC Summary - Business Support Specialist
-
Discharge Instructions:
Sleep Apnea Risk Intermediate
Discharge Diagnosis/Procedures #Sepsis
� Insetting of source of UTI and influenza B
Diet Low Fat,Regular
Activity As tolerated
Blood Work cbc and cmp in 3-5 days
Instructions:
Stand-Alone Forms:
Changes to Home Medications: Yes
Discharge Medications:
DC Medications w/original date entered in [facility]
alfuzosin 10 mg tablet,extended release 24 hr 10 mg PO QPM Urinary Issue 04/28/25
allopurinol 300 mg tablet 300 mg PO DAILY Gout 04/28/25
atorvastatin 20 mg tablet 20 mg PO DAILY High Cholesterol 04/28/25
cyanocobalamin (vitamin B-12) 1,000 mcg tablet 1,000 mcg PO DAILY Supplement 04/28/25
dulaglutide 4.5 mg/0.5 mL subcutaneous pen injector (Trulicity) 4.5 mg SC TORRES Diabetes 04/28/25
ezetimibe 10 mg tablet 10 mg PO DAILY High Cholesterol 04/28/25
gabapentin 100 mg capsule 100 mg PO BID@1930,2230 04/28/25
mirabegron 25 mg tablet,extended release 24 hr (Myrbetriq) 25 mg PO DAILY Urinary Issue 04/28/25
mupirocin 2 % topical ointment 1 applic topical DAILY right foot 04/28/25
pantoprazole 40 mg tablet,delayed release 40 mg PO DAILY Gastrointestinal Issue 04/28/25
therapeutic multivitamin 1 tab PO DAILY Supplement 04/28/25
dapagliflozin propanediol 10 mg tablet (Farxiga) 10 mg PO DAILY 06/15/25
finasteride 5 mg tablet 5 mg PO DAILY 06/15/25
bismuth subsalicylate 262 mg/15 mL oral suspension (Kaopectate (bismuth subsalicylate)) 262 mg PO DAILYPRN PRN stomach issuses 07/11/25
cefdinir 300 mg capsule 300 mg PO Q12H 6 days #12 caps 07/13/25
losartan 100 mg tablet 100 mg PO DAILY 30 days #30 tabs 07/13/25
oseltamivir 75 mg capsule 75 mg PO BID 4 days #8 caps 07/13/25
Home Medication Changes
cefdinir 300 mg capsule 300 mg PO Q12H 6 days #12 caps 07/13/25
losartan 100 mg tablet 100 mg PO DAILY 30 days #30 tabs 07/13/25
oseltamivir 75 mg capsule 75 mg PO BID 4 days #8 caps 07/13/25
Pending Results: No
--- NOTE | 2025-07-13 13:01 | CM ---
Patient seen today
IMM explained & signed. Placed in chart
PT rec to resume outpatient PT/OT
Patient states was current with [facility] in [place]
PLAN: home, outpatient therapy
to transport
== END 2025-07-13 13:51 | disposition home or self-care (01) | DRG 871 ==
LOC: 3 WEST ACU 15:36
PROVIDERS: Nurse Practitioner; Student in an Organized Health Care Education/Training Program; ADMITTING PHYSICIAN Hospitalist; ATTENDING PHYSICIAN Internal Medicine; EMERGENCY PHYSICIAN Emergency Medicine; FAMILY PHYSICIAN Nurse Practitioner Primary Care
DX: A41.89 Other specified sepsis (principal); G93.41 Metabolic encephalopathy; N39.0 Urinary tract infection, site not specified; E87.1 Hypo-osmolality and hyponatremia; J10.1 Influenza due to other identified influenza virus with other respiratory manifestations; R65.20 Severe sepsis without septic shock; B96.20 Unspecified Escherichia coli [E. coli] as the cause of diseases classified elsewhere; E86.0 Dehydration; E11.22 Type 2 diabetes mellitus with diabetic chronic kidney disease; N18.32 Chronic kidney disease, stage 3b; Z87.440 Personal history of urinary (tract) infections; K21.9 Gastro-esophageal reflux disease without esophagitis; I48.0 Paroxysmal atrial fibrillation; I12.9 Hypertensive chronic kidney disease with stage 1 through stage 4 chronic kidney disease, or unspecified chronic kidney disease; E11.40 Type 2 diabetes mellitus with diabetic neuropathy, unspecified; E78.00 Pure hypercholesterolemia, unspecified; Z79.84 Long term (current) use of oral hypoglycemic drugs; N39.498 Other specified urinary incontinence; N40.1 Benign prostatic hyperplasia with lower urinary tract symptoms; Z79.01 Long term (current) use of anticoagulants; Z96.611 Presence of right artificial shoulder joint; Z11.52 Encounter for screening for COVID-19
CPT/HCPCS: 71046; 80048; 80053; 81003; 81015; 82962; 83605; 84443; 85025; 85027; 87040; 87077; 87086; 87186; 87502; 87811; 93005; 96361; 96374; 97162; 99285